=== PATIENT | female | born 1955 | race Caucasian/White ===

== ENCOUNTER 2020-08-13 19:38 | Inpatient (IN) | payer MEDICARE, OTHER ==
[~2020-08-13] VITALS: Ht 154.9 cm; Wt 68.0 kg
[~2020-08-13 19:38] MED LIST: Z.0.AMBIEN CR12.5 MG PO; Z.0.CATAPRES0.3 MG PO; Z.0.CLONAZEPAM0.5 MG PO; Z.0.HYDROCHLOROTHIA2 PO; Z.0.NORVASC5 MG PO; Z.1.BENICAR HCT 401 PO
[2020-08-14 11:53] VITALS: BP 145/80
[2020-08-14 12:15] LABS: BASOPHILS # (AUTO) 0.1 (0.0-0.1); EOSINOPHILS % 0.3 % (0.0-6.0); HEMATOCRIT 39.9 % (34.2-44.1); HEMOGLOBIN 13.3 g/dL (12.0-16.0); LYMPHOCYTES # (AUTO) 0.9 (1.0-3.2); LYMPHOCYTES % 10.4 % (18.0-39.1); MEAN CORPUSCULAR HEMOGLOBIN 30.4 pg (28-32); MEAN CORPUSCULAR HGB CONC 33.3 g/dL (31-35); MEAN CORPUSCULAR VOLUME 91.3 fL (81-99); MONOCYTES # (AUTO) 0.4 (0.2-0.8); MONOCYTES % 4.9 % (4.4-11.3); NEUTROPHILS # (AUTO) 7.1 (2.1-6.9); NEUTROPHILS % 82.7 % (38.7-80.0); PLATELET COUNT 266 x10e3/uL (140-360); RED BLOOD COUNT 4.37 x10e6/uL (3.6-5.1); RED CELL DISTRIBUTION WIDTH 13.6 % (11.7-14.4)
[2020-08-14] MEDS ORDERED: VANCOMYCIN 1GM/NS 250 ML 250 ML IV SCH (12:30)
[2020-08-14 12:33] LABS: ALANINE AMINOTRANSFERASE 17 IU/L (0-55); ALBUMIN 4.1 g/dL (3.5-5.0); ALBUMIN/GLOBULIN RATIO 1.3 (0.8-2.0); ALKALINE PHOSPHATASE 75 IU/L (40-150); ANION GAP 16.5 mmol/L (8-16); BLOOD UREA NITROGEN 17 mg/dL (7-26); BUN/CREATININE RATIO 18 (6-25); CARBON DIOXIDE 20 mmol/L (22-29); CHLORIDE 95 mmol/L (98-107); CREATININE, SERUM 0.92 mg/dL (0.57-1.11); EST GLOMERULAR FILTRATION RATE > 60 ML/MIN (60-); GLUCOSE 133 mg/dL (74-118); POTASSIUM 4.5 mmol/L (3.5-5.1); SODIUM 127 mmol/L (136-145)
[2020-08-14] MEDS ORDERED: HYDRALAZINE HC100 MG PO (12:38)
[2020-08-14] MEDS ORDERED: ESCITALOPRAM OX20 MG PO (12:38)
[2020-08-14] MEDS ORDERED: LOPRESSOR25 MG PO (12:38)
[2020-08-14] MEDS ORDERED: MELOXICAM15 MG PO (12:38)
[2020-08-14] MEDS ORDERED: ULTRAM 50MG50 MG PO (12:38)
[2020-08-14] MEDS ORDERED: LOSARTAN POTAS100 MG PO (12:45)
[2020-08-14] MEDS ORDERED: HYDROCHLOROTHIA25 MG (12:45)
[2020-08-14] MEDS ORDERED: CEFEPIME HCL 1GM 1 GM in SODIUM CHLORIDE 0.9% 50ML 50 ML IV SCH (14:00)
[2020-08-14] MEDS ORDERED: CEFEPIME HCL 1 GM VIAL IV SCH (14:00)
[2020-08-14] MEDS ORDERED: SODIUM CHLORIDE 0.9% 1000ML 1,000 ML IV SCH (15:00)
[2020-08-14 15:43] VITALS: BP 145/80
[2020-08-14 15:53] VITALS: BP 165/87
[2020-08-14] MEDS ORDERED: NON-FORMULARY MEDICATION (Meloxicam 15 MG) PO PRN (16:30)
[2020-08-14] MEDS: HYDRALAZINE HCL 100 MG TABLET PO SCH (16:41)
[2020-08-14] MEDS: TRAMADOL HCL 50 MG TAB PO PRN ×2 (16:49→22:54)
[2020-08-14 18:38] VITALS: BP 165/87
[2020-08-14 19:44] VITALS: BP 168/100
[2020-08-14] MEDS ORDERED: CLONIDINE HCL 0.1 MG TAB PO ONE (20:45)
[2020-08-14] MEDS ORDERED: LORAZEPAM 0.5 MG TAB PO PRN (20:45)
[2020-08-14] MEDS ORDERED: SODIUM CHLORIDE 0.9% 50ML 50 ML ONE (21:19)
[2020-08-14] MEDS: VANCOMYCIN 1GM/NS 250 ML 250 ML IV SCH (21:45)
[2020-08-14] MEDS: CEFEPIME HCL 1GM 1 GM in SODIUM CHLORIDE 0.9% 50ML 50 ML IV SCH (21:46)
[2020-08-14] MEDS: SODIUM CHLORIDE 0.9% 1000ML 1,000 ML IV SCH (21:46)
[2020-08-14 21:49] VITALS: BP 200/90
[2020-08-15] VITALS (8 sets, daily range): BP systolic 105–182; BP diastolic 62–82
[2020-08-15] MEDS: CEFEPIME HCL 1GM 1 GM in SODIUM CHLORIDE 0.9% 50ML 50 ML IV SCH ×3 (04:18→20:17)
[2020-08-15 05:59] LABS: ANION GAP 12.9 mmol/L (8-16); BLOOD UREA NITROGEN 15 mg/dL (7-26); BUN/CREATININE RATIO 19 (6-25); CALCIUM 8.4 mg/dL (8.4-10.2); CARBON DIOXIDE 24 mmol/L (22-29); CHLORIDE 98 mmol/L (98-107); CREATININE, SERUM 0.77 mg/dL (0.57-1.11); EST GLOMERULAR FILTRATION RATE > 60 ML/MIN (60-); GLUCOSE 101 mg/dL (74-118); POTASSIUM 3.9 mmol/L (3.5-5.1); SODIUM 131 mmol/L (136-145)
[2020-08-15] MEDS: VANCOMYCIN 1GM/NS 250 ML 250 ML IV SCH ×2 (08:29→21:54)
[2020-08-15] MEDS: LOSARTAN POTASSIUM 100 MG TAB PO SCH (08:29)
[2020-08-15] MEDS: HYDRALAZINE HCL 100 MG TABLET PO SCH ×2 (08:30→20:21)
[2020-08-15] MEDS: HYDROCHLOROTHIAZIDE 25 MG TAB PO SCH (08:30)
[2020-08-15] MEDS: ESCITALOPRAM OXALATE 10 MG TAB PO SCH (08:30)
[2020-08-15] MEDS: METOPROLOL TARTRATE 25 MG TAB PO SCH (08:32)
[2020-08-15] MEDS: TRAMADOL HCL 50 MG TAB PO PRN ×3 (08:33→20:35)
[2020-08-15] MEDS ORDERED: NON-FORMULARY MEDICATION (Escitalopram Oxalate 20 MG) PO SCH (09:00)
[2020-08-15] MEDS: SODIUM CHLORIDE 0.9% 1000ML 1,000 ML IV SCH ×2 (11:15→20:17)
[2020-08-15] MEDS: CLONIDINE HCL 0.1 MG TAB PO PRN ×2 (15:00→21:53)
[2020-08-15] MEDS: MELOXICAM 7.5 MG TAB PO PRN (18:22)
[2020-08-15] MEDS: LORAZEPAM 0.5 MG TAB PO PRN (22:30)
[2020-08-16] VITALS (10 sets, daily range): BP systolic 141–187; BP diastolic 67–94
[2020-08-16] MEDS: CEFEPIME HCL 1GM 1 GM in SODIUM CHLORIDE 0.9% 50ML 50 ML IV SCH ×3 (04:24→20:10)
[2020-08-16] MEDS: TRAMADOL HCL 50 MG TAB PO PRN ×3 (04:32→20:10)
[2020-08-16] MEDS: HYDROCHLOROTHIAZIDE 25 MG TAB PO SCH (07:23)
[2020-08-16] MEDS: LOSARTAN POTASSIUM 100 MG TAB PO SCH (07:23)
[2020-08-16] MEDS: METOPROLOL TARTRATE 25 MG TAB PO SCH (07:23)
[2020-08-16] MEDS: ESCITALOPRAM OXALATE 10 MG TAB PO SCH (07:23)
[2020-08-16] MEDS: HYDRALAZINE HCL 100 MG TABLET PO SCH ×2 (07:23→20:10)
[2020-08-16] MEDS: VANCOMYCIN 1GM/NS 250 ML 250 ML IV SCH ×2 (08:33→21:14)
[2020-08-16] MEDS: MELOXICAM 7.5 MG TAB PO PRN (08:34)
[2020-08-16] MEDS: SODIUM CHLORIDE 0.9% 1000ML 1,000 ML IV SCH ×2 (10:37→21:14)
[2020-08-16] MEDS: CLONIDINE HCL 0.1 MG TAB PO PRN ×2 (11:40→21:56)
[2020-08-16] MEDS ORDERED: ONDANSETRON HCL INJ 2MG/ML 2ML 2 MG/ML VIAL IV PRN (12:15)
[2020-08-16] MEDS: LORAZEPAM 0.5 MG TAB PO PRN ×2 (12:28→21:14)
[2020-08-17] VITALS (7 sets, daily range): BP systolic 150–184; BP diastolic 71–97
[2020-08-17] MEDS: TRAMADOL HCL 50 MG TAB PO PRN ×3 (02:23→16:52)
[2020-08-17] MEDS: CEFEPIME HCL 1GM 1 GM in SODIUM CHLORIDE 0.9% 50ML 50 ML IV SCH ×3 (03:52→21:36)
[2020-08-17] MEDS: HYDRALAZINE HCL 100 MG TABLET PO SCH ×2 (08:24→21:36)
[2020-08-17] MEDS: HYDROCHLOROTHIAZIDE 25 MG TAB PO SCH (08:24)
[2020-08-17] MEDS: LOSARTAN POTASSIUM 100 MG TAB PO SCH (08:24)
[2020-08-17] MEDS: METOPROLOL TARTRATE 25 MG TAB PO SCH (08:25)
[2020-08-17] MEDS: ESCITALOPRAM OXALATE 10 MG TAB PO SCH (08:25)
[2020-08-17] MEDS: VANCOMYCIN 1GM/NS 250 ML 250 ML IV SCH (08:39)
[2020-08-17] MEDS: CLONIDINE HCL 0.1 MG TAB PO PRN ×2 (11:20→16:51)
[2020-08-17] MEDS: SODIUM CHLORIDE 0.9% 1000ML 1,000 ML IV SCH (17:27)
[2020-08-17] MEDS: LORAZEPAM 0.5 MG TAB PO PRN (21:36)
[2020-08-18] VITALS: BP 151/80
[2020-08-18] MEDS: SODIUM CHLORIDE 0.9% 1000ML 1,000 ML IV SCH (02:00)
[2020-08-18 04:00] VITALS: BP 180/88
[2020-08-18] MEDS: CEFEPIME HCL 1GM 1 GM in SODIUM CHLORIDE 0.9% 50ML 50 ML IV SCH ×2 (04:02→13:19)
[2020-08-18] MEDS: TRAMADOL HCL 50 MG TAB PO PRN ×2 (04:14→10:14)
[2020-08-18 08:15] VITALS: BP 171/81
[2020-08-18 10:12] VITALS: BP 171/81
[2020-08-18] MEDS: LOSARTAN POTASSIUM 100 MG TAB PO SCH (10:55)
[2020-08-18] MEDS: ESCITALOPRAM OXALATE 10 MG TAB PO SCH (10:55)
[2020-08-18] MEDS: HYDRALAZINE HCL 100 MG TABLET PO SCH (10:55)
[2020-08-18] MEDS: HYDROCHLOROTHIAZIDE 25 MG TAB PO SCH (10:55)
[2020-08-18] MEDS: METOPROLOL TARTRATE 25 MG TAB PO SCH (10:56)
[2020-08-18 12:12] VITALS: BP 185/82
[2020-08-18] MEDS ORDERED: CEFEPIME HCL 1 GM VIAL ONE (13:18)
[2020-08-18] MEDS ORDERED: SODIUM CHLORIDE 0.9% 250ML 250 ML ONE (13:18)
[2020-08-18] MEDS ORDERED: DAPTOMYCIN 500mg 10ML 500 MG in SODIUM CHLORIDE 0.9% 100 ML IV SCH (15:00)
[2020-08-18 16:04] VITALS: BP 180/90
[2020-08-18] MEDS: CLONIDINE HCL 0.1 MG TAB PO PRN (16:13)
== END 2020-08-18 16:21 | disposition home or self-care (01) | DRG 560 ==
LOC: MED/SURG2 08-14 10:49
PROVIDERS: ADMIT Family Medicine; ATTEND Family Medicine
PROC: 02HV33Z Insertion of Infusion Device into Superior Vena Cava, Percutaneous Approach (ICD-10-PCS; principal; 2020-08-14)
PROC: B548ZZA Ultrasonography of Superior Vena Cava, Guidance (ICD-10-PCS; 2020-08-14)
DX: T84.59XA Infection and inflammatory reaction due to other internal joint prosthesis, initial encounter (principal); M86.612 Other chronic osteomyelitis, left shoulder; E87.1 Hypo-osmolality and hyponatremia; I10 Essential (primary) hypertension; I25.10 Atherosclerotic heart disease of native coronary artery without angina pectoris; E78.5 Hyperlipidemia, unspecified; Z96.612 Presence of left artificial shoulder joint; G47.33 Obstructive sleep apnea (adult) (pediatric); E11.9 Type 2 diabetes mellitus without complications; F41.9 Anxiety disorder, unspecified; R51.9 Headache, unspecified; T36.8X5A Adverse effect of other systemic antibiotics, initial encounter; Z20.822 Contact with and (suspected) exposure to COVID-19
CPT/HCPCS: 36415; 36569; 71045; 74470; 80048; 80053; 80202; 85025; 85651; 86140; 87071; 87205; 96361; J0692; J2405; J3370; J7030; J7050; U0002

== ENCOUNTER 2022-07-02 15:11 | Inpatient (IN) | payer MEDICARE, OTHER ==
[~2022-07-02] VITALS: Ht 154.9 cm; Wt 68.0 kg
[~2022-07-02 15:11] MED LIST changes: +ESCITALOPRAM OX20 MG PO; +HYDRALAZINE HC100 MG PO; +HYDROCHLOROTHIA25 MG; +LOPRESSOR25 MG PO; +LOSARTAN POTAS100 MG PO; +MELOXICAM15 MG PO; +ULTRAM 50MG50 MG PO
[2022-07-02 17:03] LABS: BASOPHILS % 0.5 % (0.0-1.0); EOSINOPHILS # (AUTO) 0.1 (0.0-0.4); EOSINOPHILS % 0.7 % (0.0-6.0); HEMATOCRIT 37.2 % (34.2-44.1); HEMOGLOBIN 12.1 g/dL (12.0-16.0); LYMPHOCYTES # (AUTO) 1.2 (1.0-3.2); LYMPHOCYTES % 16.5 % (18.0-39.1); MEAN CORPUSCULAR HEMOGLOBIN 32.4 pg (28-32); MEAN CORPUSCULAR HGB CONC 32.5 g/dL (31-35); MEAN CORPUSCULAR VOLUME 99.5 fL (81-99); MONOCYTES % 12.8 % (4.4-11.3); NEUTROPHILS # (AUTO) 5.2 (2.1-6.9); PLATELET COUNT 265 x10e3/uL (140-360); RED BLOOD COUNT 3.74 x10e6/uL (3.6-5.1); RED CELL DISTRIBUTION WIDTH 11.4 % (11.7-14.4)
[2022-07-02 17:13] LABS: INR 1.18; PARTIAL THROMBOPLASTIN TIME 33.4 seconds (23.8-35.5); PROTHROMBIN TIME 15.2 seconds (11.9-14.5)
[2022-07-02 17:22] LABS: ALBUMIN 2.8 g/dL (3.5-5.0); ALBUMIN/GLOBULIN RATIO 0.8 (0.8-2.0); ANION GAP 14.8 mmol/L (8-16); CALCIUM 8.7 mg/dL (8.4-10.2); CREATININE, SERUM 0.71 mg/dL (0.57-1.11)
[2022-07-02 17:27] LABS: POTASSIUM 2.8 mmol/L (3.5-5.1)
[2022-07-02 17:29] LABS: CREATINE KINASE MB 0.6 ng/mL (0-5.0)
[2022-07-02] MEDS ORDERED: IOPAMIDOL 370 MG/ML 100 ML INFUS..BTL INJ ONE (18:00)
[2022-07-02] MEDS ORDERED: SODIUM CHLORIDE 0.9% 100 ML ONE (18:00)
[2022-07-02] MEDS ORDERED: POTASSIUM CHLORIDE 20 MEQ TAB CR PO STA (18:37)
[2022-07-02] MEDS ORDERED: SODIUM CHLORIDE 0.9% 1000ML 1,000 ML IV ONE (18:45)
[2022-07-02] MEDS ORDERED: ONDANSETRON HCL INJ 2MG/ML 2ML 2 MG/ML VIAL IV PRN (22:30)
[2022-07-02] MEDS ORDERED: Morphine 2mg Syringe 2 MG/ML SYR IV PRN (22:30)
[2022-07-02] MEDS: SODIUM CHLORIDE 0.9% 1000ML 1,000 ML IV SCH (22:37)
[2022-07-02] MEDS: TRAZODONE HCL 50 MG TAB PO SCH (22:44)
[2022-07-02] MEDS ORDERED: TRAMADOL HCL 50 MG TAB PO ONE (22:45)
[2022-07-03] VITALS (9 sets, daily range): BP systolic 150–182; BP diastolic 68–93
[2022-07-03] MEDS ORDERED: LEVOTHYROXINE25 MCG (00:21)
[2022-07-03] MEDS ORDERED: SPIRONOLACTONE25 MG (00:21)
[2022-07-03 08:03] LABS: BASOPHILS % 0.7 % (0.0-1.0); EOSINOPHILS # (AUTO) 0.1 (0.0-0.4); EOSINOPHILS % 0.8 % (0.0-6.0); HEMATOCRIT 35.5 % (34.2-44.1); HEMOGLOBIN 12.1 g/dL (12.0-16.0); LYMPHOCYTES % 16.5 % (18.0-39.1); MEAN CORPUSCULAR HEMOGLOBIN 32.6 pg (28-32); MEAN CORPUSCULAR HGB CONC 34.1 g/dL (31-35); MEAN CORPUSCULAR VOLUME 95.7 fL (81-99); MONOCYTES # (AUTO) 0.7 (0.2-0.8); MONOCYTES % 11.6 % (4.4-11.3); NEUTROPHILS # (AUTO) 4.3 (2.1-6.9); NEUTROPHILS % 69.6 % (38.7-80.0); PLATELET COUNT 196 x10e3/uL (140-360); RED BLOOD COUNT 3.71 x10e6/uL (3.6-5.1); RED CELL DISTRIBUTION WIDTH 12.1 % (11.7-14.4)
[2022-07-03 08:25] LABS: CREATINE KINASE MB 0.8 ng/mL (0-5.0)
[2022-07-03 08:41] LABS: ALBUMIN 2.6 g/dL (3.5-5.0); ALBUMIN/GLOBULIN RATIO 0.8 (0.8-2.0); ANION GAP 14.4 mmol/L (8-16); CALCIUM 8.6 mg/dL (8.4-10.2); CREATININE, SERUM 0.66 mg/dL (0.57-1.11); POTASSIUM 3.4 mmol/L (3.5-5.1)
[2022-07-03] MEDS: LEVOTHYROXINE SODIUM 25 MCG TABLET PO SCH (08:49)
[2022-07-03] MEDS: LOSARTAN POTASSIUM 100 MG TAB PO SCH (08:49)
[2022-07-03] MEDS: METOPROLOL TARTRATE 25 MG TAB PO SCH (08:49)
[2022-07-03] MEDS: SODIUM CHLORIDE 0.9% 1000ML 1,000 ML IV SCH ×3 (09:03→22:41)
[2022-07-03] MEDS: TRAMADOL HCL 50 MG TAB PO PRN (09:42)
[2022-07-03] MEDS: Morphine 2mg Syringe 2 MG/ML SYR IV PRN ×3 (13:57→22:41)
[2022-07-03 15:44] LABS: CREATINE KINASE MB 0.8 ng/mL (0-5.0)
[2022-07-03] MEDS: DEXAMETHASONE 4 MG TAB PO SCH (18:55)
[2022-07-03] MEDS: HYDRALAZINE HCL 20 MG/ML VIAL IV PRN (21:44)
[2022-07-03] MEDS: TRAZODONE HCL 50 MG TAB PO SCH (21:47)
[2022-07-03] MEDS: ACYCLOVIR SODIUM INJ 500 MG in SODIUM CHLORIDE 0.9% 100 ML IV SCH (21:47)
[2022-07-04] VITALS (7 sets, daily range): BP systolic 138–190; BP diastolic 77–88
[2022-07-04] MEDS: DEXAMETHASONE 4 MG TAB PO SCH ×4 (00:26→18:01)
[2022-07-04] MEDS: SODIUM CHLORIDE 0.9% 1000ML 1,000 ML IV SCH ×3 (05:55→22:30)
[2022-07-04] MEDS: ACYCLOVIR SODIUM INJ 500 MG in SODIUM CHLORIDE 0.9% 100 ML IV SCH ×2 (05:55→13:04)
[2022-07-04] MEDS: LEVOTHYROXINE SODIUM 25 MCG TABLET PO SCH (06:01)
[2022-07-04 06:44] LABS: HEMATOCRIT 31.1 % (34.2-44.1); HEMOGLOBIN 10.6 g/dL (12.0-16.0); LYMPHOCYTES # (AUTO) 0.5 (1.0-3.2); LYMPHOCYTES % 11.4 % (18.0-39.1); MEAN CORPUSCULAR HEMOGLOBIN 32.1 pg (28-32); MEAN CORPUSCULAR HGB CONC 34.1 g/dL (31-35); MEAN CORPUSCULAR VOLUME 94.2 fL (81-99); MONOCYTES # (AUTO) 0.1 (0.2-0.8); NEUTROPHILS # (AUTO) 3.4 (2.1-6.9); NEUTROPHILS % 84.6 % (38.7-80.0); PLATELET COUNT 222 x10e3/uL (140-360); RED CELL DISTRIBUTION WIDTH 11.7 % (11.7-14.4)
[2022-07-04 07:07] LABS: ALBUMIN 2.1 g/dL (3.5-5.0); ALBUMIN/GLOBULIN RATIO 0.6 (0.8-2.0); ANION GAP 13.4 mmol/L (8-16); CALCIUM 8.1 mg/dL (8.4-10.2); CREATININE, SERUM 0.61 mg/dL (0.57-1.11); MAGNESIUM 1.3 MG/DL (1.3-2.1); POTASSIUM 3.4 mmol/L (3.5-5.1)
[2022-07-04] MEDS: LOSARTAN POTASSIUM 100 MG TAB PO SCH (09:00)
[2022-07-04] MEDS: METOPROLOL TARTRATE 25 MG TAB PO SCH (09:00)
[2022-07-04] MEDS: Morphine 2mg Syringe 2 MG/ML SYR IV PRN (13:04)
[2022-07-04] MEDS: TRAMADOL HCL 50 MG TAB PO PRN (20:12)
[2022-07-04] MEDS: TRAZODONE HCL 50 MG TAB PO SCH (21:29)
[2022-07-05] VITALS (8 sets, daily range): BP systolic 147–196; BP diastolic 87–95
[2022-07-05] MEDS: ACYCLOVIR SODIUM INJ 500 MG in SODIUM CHLORIDE 0.9% 100 ML IV SCH ×2 (00:30→06:34)
[2022-07-05] MEDS: DEXAMETHASONE 4 MG TAB PO SCH ×3 (00:30→11:53)
[2022-07-05] MEDS: Morphine 2mg Syringe 2 MG/ML SYR IV PRN (00:31)
[2022-07-05] MEDS: LEVOTHYROXINE SODIUM 25 MCG TABLET PO SCH ×2 (06:33→09:49)
[2022-07-05] MEDS: SODIUM CHLORIDE 0.9% 1000ML 1,000 ML IV SCH ×3 (06:34→16:34)
[2022-07-05] MEDS: LOSARTAN POTASSIUM 100 MG TAB PO SCH (09:49)
[2022-07-05] MEDS: METOPROLOL TARTRATE 25 MG TAB PO SCH (09:50)
[2022-07-05] MEDS ORDERED: ONDANSETRON HCL 4 MG ORAL DISINTEGRATING TAB PO PRN (14:00)
[2022-07-05] MEDS: TRAMADOL HCL 50 MG TAB PO PRN ×2 (16:00→22:21)
[2022-07-05] MEDS: PANTOPRAZOLE SOD 40 MG TABEC PO SCH (18:47)
[2022-07-05] MEDS: TRAZODONE HCL 50 MG TAB PO SCH (21:01)
[2022-07-06] VITALS (9 sets, daily range): BP systolic 131–198; BP diastolic 73–113
[2022-07-06] MEDS: SODIUM CHLORIDE 0.9% 1000ML 1,000 ML IV SCH ×3 (06:18→17:39)
[2022-07-06] MEDS: PANTOPRAZOLE SOD 40 MG TABEC PO SCH (08:29)
[2022-07-06] MEDS: METOPROLOL TARTRATE 25 MG TAB PO SCH (08:29)
[2022-07-06] MEDS: LEVOTHYROXINE SODIUM 25 MCG TABLET PO SCH (08:29)
[2022-07-06] MEDS: POTASSIUM CHLORIDE 20 MEQ TAB CR PO SCH (08:29)
[2022-07-06] MEDS: LOSARTAN POTASSIUM 100 MG TAB PO SCH (08:30)
[2022-07-06 10:26] LABS: HEMATOCRIT 31.7 % (34.2-44.1); HEMOGLOBIN 10.3 g/dL (12.0-16.0); LYMPHOCYTES # (AUTO) 0.7 (1.0-3.2); LYMPHOCYTES % 9.1 % (18.0-39.1); MEAN CORPUSCULAR HEMOGLOBIN 31.6 pg (28-32); MEAN CORPUSCULAR HGB CONC 32.5 g/dL (31-35); MEAN CORPUSCULAR VOLUME 97.2 fL (81-99); MONOCYTES # (AUTO) 0.6 (0.2-0.8); NEUTROPHILS # (AUTO) 6.3 (2.1-6.9); PLATELET COUNT 271 x10e3/uL (140-360); RED BLOOD COUNT 3.26 x10e6/uL (3.6-5.1); RED CELL DISTRIBUTION WIDTH 11.2 % (11.7-14.4)
[2022-07-06 10:36] LABS: ANION GAP 9.8 mmol/L (8-16); CALCIUM 7.7 mg/dL (8.4-10.2); CREATININE, SERUM 0.58 mg/dL (0.57-1.11); POTASSIUM 2.8 mmol/L (3.5-5.1)
[2022-07-06] MEDS: HYDRALAZINE HCL 20 MG/ML VIAL IV PRN (17:40)
[2022-07-06] MEDS: TRAMADOL HCL 50 MG TAB PO PRN (18:44)
[2022-07-06] MEDS: TRAZODONE HCL 50 MG TAB PO SCH (20:33)
[2022-07-07] VITALS: BP 185/97
[2022-07-07] MEDS: HYDRALAZINE HCL 20 MG/ML VIAL IV PRN (01:15)
[2022-07-07] MEDS: SODIUM CHLORIDE 0.9% 1000ML 1,000 ML IV SCH (02:30)
[2022-07-07 04:00] VITALS: BP 157/78
[2022-07-07 08:09] VITALS: BP 184/88
[2022-07-07] MEDS: PANTOPRAZOLE SOD 40 MG TABEC PO SCH (08:20)
[2022-07-07] MEDS: TRAMADOL HCL 50 MG TAB PO PRN (08:21)
[2022-07-07] MEDS: POTASSIUM CHLORIDE 20 MEQ TAB CR PO SCH (08:21)
[2022-07-07] MEDS: LOSARTAN POTASSIUM 100 MG TAB PO SCH (08:21)
[2022-07-07] MEDS: LEVOTHYROXINE SODIUM 25 MCG TABLET PO SCH (08:22)
[2022-07-07] MEDS: METOPROLOL TARTRATE 25 MG TAB PO SCH (08:22)
[2022-07-07 08:51] VITALS: BP 184/88
[2022-07-07 12:00] VITALS: BP 172/85
== END 2022-07-07 12:51 | DRG 73 ==
LOC: ER 15:20 → ERHOLD 22:27 → MED/SURG2 23:43
PROVIDERS: ADMIT Family Medicine; ATTEND Family Medicine
PROC: 02HV33Z Insertion of Infusion Device into Superior Vena Cava, Percutaneous Approach (ICD-10-PCS; principal; 2022-07-04)
PROC: 8E0ZXY6 Isolation (ICD-10-PCS; 2022-07-04)
DX: G51.0 Bell's palsy (principal); U07.1 COVID-19; M48.56XA Collapsed vertebra, not elsewhere classified, lumbar region, initial encounter for fracture; M48.061 Spinal stenosis, lumbar region without neurogenic claudication; R62.7 Adult failure to thrive; Z68.28 Body mass index [BMI] 28.0-28.9, adult; E87.6 Hypokalemia; E03.9 Hypothyroidism, unspecified; Z86.73 Personal history of transient ischemic attack (TIA), and cerebral infarction without residual deficits; R29.6 Repeated falls
CPT/HCPCS: 36415; 36569; 70450; 70496; 70498; 70551; 71045; 72131; 72148; 80048; 80053; 82550; 82553; 83735; 84484; 85025; 85610; 85730; 93005; 93306; 99252; 99284; J0360; J2270; J7030; J7050; Q9967